=== PATIENT | male | born 1955 | race Caucasian/White ===

== ENCOUNTER 2017-03-30 08:04 | Day surgery (SDC) | payer BC, OTHER ==
[2017-03-28 09:37] LABS: HEMATOCRIT 42.3 % (37.9-51.0); HEMOGLOBIN 14.5 g/dL (13.5-17.0); HGB HCT DIFFERENCE 1.2; MEAN CORPUSCULAR HEMOGLOBIN 29.4 pg (27.0-33.4); MEAN CORPUSCULAR HGB CONC 34.3 g/dL (32.0-36.0); MEAN CORPUSCULAR VOLUME 86 fl (80-97); RED BLOOD COUNT 4.94 10^6/uL (4.35-5.55); RED CELL DISTRIBUTION WIDTH 14.4 % (11.5-14.0); WHITE BLOOD COUNT 5.9 10^3/uL (4.0-10.5)
[~2017-03-30 08:04] MED LIST: ACETAMINOPHEN 325 MG TABLET PO PRN; CEFAZOLIN 1 GM/D5W RTU 1 GM/50 ML RTUPB IV PRN; GLYCOPYRROLATE INJ 0.4 MG/2 ML VIAL ONE; LACTATED RINGERS 1000 ML IV PRN; LIDOCAINE 0.5% INJ-PF (5 MG/ML) 50 ML SDV SUBCUT PRN; SUCCINYLCHOLINE CHLORIDE INJ 200 MG/10 ML VIAL ONE
[2017-03-30] MEDS ORDERED: BUPIVACAINE HCL 0.25 % INJ/PF (2.5 MG/1 ML) 30 ML VIAL ONE (08:57)
[2017-03-30] MEDS ORDERED: BUPIVACAINE INJ/PF LIPOSOME/PF 266 MG/20 ML SDV ONE (08:57)
[2017-03-30] MEDS ORDERED: FENTANYL CITRATE INJ/PF 250 MCG/5 ML AMPULE ONE (09:54)
[2017-03-30] MEDS ORDERED: MIDAZOLAM 2 MG/2 ML INJ ONE (09:54)
[2017-03-30] MEDS ORDERED: PROPOFOL INJ 200 MG/20 ML VIAL IV ONE (09:54)
[2017-03-30] MEDS ORDERED: ACETAMINOPHEN 100 ML IV ONE (09:55)
[2017-03-30] MEDS ORDERED: MEPERIDINE HCL/PF INJ 25 MG/1 ML DISP.SYRIN IV PRN (10:37)
[2017-03-30] MEDS ORDERED: FENTANYL CITRATE INJ/PF 100 MCG/2 ML AMPUL IV PRN ×3 (10:37)
[2017-03-30] MEDS ORDERED: OXYCODONE-ACETAMINOPHEN 5-325 MG TABLET PO PRN ×3 (10:37→12:30)
[2017-03-30] MEDS ORDERED: DIPHENHYDRAMINE HCL 50 MG/ML VIAL IV PRN (10:37)
[2017-03-30] MEDS ORDERED: MORPHINE SULFATE 10 MG/ML INJ IV PRN ×2 (10:37→12:30)
[2017-03-30] MEDS ORDERED: PROMETHAZINE HCL INJ 25 MG/1 ML VIAL IV PRN ×2 (10:37)
--- NOTE | 2017-03-30 11:58 | Operative Report ---
Operative Report DATE OF SURGERY: 03/30/17 PREOPERATIVE DIAGNOSIS: Right inguinal hernia POSTOPERATIVE DIAGNOSIS: Right inguinal hernia, indirect, and direct( pantaloon) OPERATION: 1. Right inguinal exploration, removal of indirect hernia sac and cord lipoma. 2. Right inguinal herniorrhaphy with large UHS Prolene hernia system SURGEON: BROCK NOEL 1ST CHARGER TESTER: TERESA DYER ANESTHESIA: GA TISSUE REMOVED OR ALTERED: Cord lipoma, retroperitoneal fat, and hernia sac COMPLICATIONS: None ESTIMATED BLOOD LOSS: Scant INTRAOPERATIVE FINDINGS: See below PROCEDURE: The patient was seen in the preop holding area with the right groin was marked. He was then taken to the operating room where he underwent general anesthesia. The right groin was shaved of hair again, prepped and draped in sterile fashion, surgical plan and surgical timeout were conducted. Skin was anesthetized with quarter percent Marcaine in the right inguinal area. The skin was incised with a #10 blade over the right inguinal floor. Subcutaneous tissues Jesi's fascia divided with electrocautery. Subcutaneous tissue overlying the external oblique aponeurosis was , and the fascia anesthetized with quarter percent Marcaine. The fascia was opened along the direction of its fibers, exposing tendons of the inguinal canal. Of note the ilioinguinal nerve appeared to be tethered to the external oblique aponeurosis possibly in a bifurcation fashion so both branches were preserved throughout the dissection. The superior and inferior external oblique fascial flaps were mobilized. We carefully interrogated the contents of the inguinal canal. Over the course of approximately 45 minutes, we cord structures from cord lipoma, and a moderate sized right indirect hernia sac. Shoes were mildly fibrotic but with methodical technique and good visualization, we were able to separate the after mentioned structures. The lipoma of the cord was taken off with cautery and sent to pathology; similarly a large worsening of retroperitoneal fat which is distended with the hernia sac was removed, tied off at its base with 2-0 Vicryl suture and the redundant fatty tissue amputated with cautery. Finally the formal hernia sac was identified and dissected all the way to its point of origin. End up the sac to ensure it contained of visceral structures and did not. It was tied off at its base with 2-0 Vicryl suture, and the distal portion of the sac amputated and it too was sent to pathology with the previous specimens all in one container We now cleaned up the floor nicely. There were some vessels traveling along the medial floor adjacent to the lacunar ligament which were preserved. There is drain was looped around the cord structures and the ilioinguinal nerve. Of note in addition to the previously described indirect hernia sac which was amputated, there was a small hernia in the weakened inguinal floor. This was simply reduced. No suture was placed in the floor in this location. We opened up the retroperitoneal space lateral to the inferior epigastric vessels and developed the space liberally using blunt dissection. No bleeding was encountered. Now deployed a non- Ethicon Prolene the large UHS prosthesis with the inner component splayed out into the extraperitoneal space below, wall musculature. The external component was trimmed to the appropriate configuration. An upside down U was created, and the cord structures. The mesh was now attached with approximately 8 sutures in a circumferential fashion to Poupart's ligament and conjoined tendon. Again we were careful create a nilay- internal ring which was not too tight as well as preserve the described ilioinguinal nerve in its trajectory, as well as a small vessels traveling in the medial aspect of the floor the inguinal canal going towards the testicle we are satisfied with repair. The external oblique aponeurosis was closed longer exit was 5 years to 2-0 Vicryl suture Jesi's fascia with 3-0 subcutaneous tissue with 3 oh and skin approximated with Dermabond glue. Full-strength 20 cc of Exparel deployed into the surrounding subcutaneous tissue. The patient tolerated the procedure well, extubated, taken to recovery room in stable condition. The physician talent acquisition assistant, Ms. Zendejas, provided assistance during this case by: Assisting retracting tissue, instillation of local anesthesia and closure of skin incisions.
--- NOTE | 2017-03-30 11:59 | PDOC DISCHARGE SUMMARY ---
Discharge Summary (SDC) - Discharge Final Diagnosis: Right inguinal hernia Date of Surgery: 03/30/17 Discharge Date: 03/30/17 Condition: Stable Treatment or Instructions: [facility] [address], [place] [address] Discharge Instructions: Open Abdominal Procedures (Hernia, Bowel Surgery) 1.General Information: a. DO NOT DRIVE a car or operative machinery for 1-2 weeks or as long as taking Narcotic pain medication. b. DO NOT consume alcohol, tranquilizers, sleeping medication, or any non- prescribed medication for 24 hours unless approved by your doctor or as long as taking pain medication. c. DO NOT make important decisions or sign any important papers for the first 24 hours after surgery. d. When discharged home the same day as surgery have a responsible person with you the first night. 2.Activity Restriction: 8 weeks; a. Avoid heavy lifting (> 20 lbs), straining abdominal muscles and sports, mowing lawn, vacuum suction plate carrier cleaner and bending over a lot. b. Walking is important to avoid blood clots in the legs and deep breathing can prevent pneumonia. c. If it fine to go for walks, up and down steps, and ride in a car. 3.Treatment: a. You may remove dressing 48 hours after surgery and shower then daily is fine, but you should not bathe in a tub or go swimming for 2 weeks. b. If you have paper strips (steri strips) on the skin, do not remove them as they will fall off in the coming weeks. Pat them dry after your shower. Sutures beneath the paper strips dissolve. If you have skin sutures or metal irina they will be removed on your follow up visit. They may also get wet with a shower. c. Do not use oils, powders, or lotion on your incision. 4.Medications: a. You may take Toradol 10mg one pill every six hours as needed for pain. b. Stop the narcotic when able since you cannot take it and drive and they cause constipation. You may switch to plain Tylenol, Advil, or Aleve as you transition from the narcotic. Many adults find good pain relief with Advil 600-800 mg three times a day with meal to work well and avoid narcotic use. High dose Advil should only be used for short courses since it can cause indigestion, ulcer bleeding in the stomach and kidney problems. c. You may resume all normal medications unless a change is specified by your doctors. d. Antibiotic Therapy if needed ( NONE) ___ 5.Diet: a. If going home the same day as surgery start with clear liquids, and if you do well then advance to normal foods low inf fat and protein. Smaller portion size may be fajardo the first night. b. When discharged after hospital stay you may resume a normal diet. 6.Notify Physician If: a. Pain is not relieved by pain medication b. Persistent nausea and vomiting c. Chills, fever (above 101) d. Persistent bleeding or swelling at the operative site e. Unable to urinate for 6-8 hours f. Increased redness, drainage, or foul smelling discharge from incision 7. Follow Up Care: a. Please call our office to schedule an appointment with your doctor for 2 weeks. In the event of any postoperative problems or questions you may call our office during business hours or the On-Call surgeon through the plastic straightening roll operator at [facility]. [facility] [phone] [facility] [phone] (Ask for the surgeon patient companion) b. I understand the instructions for my postoperative care as described above and a copy has been given to me. _ Witness Patient/Significant Other Date Prescriptions: Ketorolac Tromethamine [Toradol 10 mg Tablet] 10 mg PO Q6HP PRN #20 tablet PRN Reason: Referrals: TONY MACK MD [Primary Care Provider] - Discharge Diet: As Tolerated Discharge Activity: No Lifting Over 10 Pounds, No Lifting/Push/Pulling Report the Following to Your Physician Immediately: Nausea, Vomiting, Increase in Pain, Fever over 101 Degrees, Unusual Bleeding, Redness, Drainage-Foul Smelling
[2017-03-30] MEDS ORDERED: RINGERS SOLUTION,LACTATED 1,000 ML IV PRN (12:30)
[2017-03-30] MEDS ORDERED: ONDANSETRON HCL INJ/PF 4 MG/2 ML SDV IV PRN (12:30)
[2017-03-30 15:16] VITALS: BP 143/96
== END 2017-03-30 15:00 | disposition home or self-care (01) ==
LOC: OROUT 08:04
PROVIDERS: ATTEND Surgery
PROC: 0YU50JZ Supplement Right Inguinal Region with Synthetic Substitute, Open Approach (ICD-10-PCS; principal; 2017-03-30 10:30)
DX: K40.90 Unilateral inguinal hernia, without obstruction or gangrene, not specified as recurrent (principal); D17.6 Benign lipomatous neoplasm of spermatic cord; E78.00 Pure hypercholesterolemia, unspecified; Z88.5 Allergy status to narcotic agent
CPT/HCPCS: 36415; 85027; 88304 ×2; 49505; C1781; J2250; J0690; J3010; J0330; J2405; J2704; J0131; C9290; 830